=== PATIENT | male | born 1940 | race Caucasian/White ===

== ENCOUNTER → 2019-07-27 | Outpatient (CLI) | payer MEDICARE ==
--- NOTE | 2019-07-27 16:08 | PCVCIMAG ---
EXAM: BILATERAL LOWER EXTREMITY ARTERIAL DUPLEX INDICATION: Peripheral Arterial Disease. Leg pain. FINDINGS: Right Leg: Increased systolic velocity of 510 cm/s common femoral artery consistent with 90% stenosis. [place] femoral artery is patent. Superficial femoral artery and popliteal artery patent. The anterior tibial, peroneal, and posterior tibial arteries are patent. Left Leg: Increased systolic velocity of 442 cm/s common femoral artery consistent with 80% stenosis. Profun[place] femoral artery is patent. Superficial femoral artery shows increased velocity of 297 cm/s in the mid vessel consistent with 80% stenosis. Popliteal artery is patent. The anterior tibial, peroneal, and posterior tibial arteries are patent. 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 80% stenosis left common femoral artery. 80% stenosis mid [place] left superficial femoral artery. LOC:[id number]
== END ==
LOC: PCVCIMAG 10:57
PROVIDERS: ATTEND Podiatrist Foot & Ankle Surgery
DX: I73.9 Peripheral vascular disease, unspecified (principal); M79.606 Pain in leg, unspecified
CPT/HCPCS: 93925